=== PATIENT | female | born 2005 | race African-American/Black ===

== ENCOUNTER 2024-05-29 15:44 | Emergency (ER) | payer SELFPAY ==
[~2024-05-29] VITALS: Ht 157.5 cm; Wt 85.0 kg
[2024-05-29 15:46] VITALS: O2SAT 98
[2024-05-29] MEDS ORDERED: ERYT1OIN6 RIGHTEYE (18:21)
[2024-05-29] MEDS: TETRACAINE 0.5% OPHTH DROPS 4ML LEFTEYE ONE (18:51)
[2024-05-29] MEDS: FLUORESCEIN SODIUM 1MG/STRIP LEFTEYE ONE (18:51)
[2024-05-29 19:30] VITALS: BP 124/57; PULSE 59; RESP 16; TEMP 97
== END 2024-05-29 19:51 | disposition home or self-care (01) ==
LOC: ER 15:44
DX: S05.01XA Injury of conjunctiva and corneal abrasion without foreign body, right eye, initial encounter (principal); X58.XXXA Exposure to other specified factors, initial encounter; Y93.89 Activity, other specified; Y92.89 Other specified places as the place of occurrence of the external cause; Y99.8 Other external cause status
CPT/HCPCS: 99283